=== PATIENT | male | born 1965 | race Caucasian/White ===

== ENCOUNTER → 2019-03-05 | Outpatient (CLI) | payer MEDICARE ==
--- NOTE | 2019-03-06 06:17 | RAD ---
EXAM DESCRIPTION: Knee,Left Complete CLINICAL HISTORY: 53 years Male, PAIN IN LEFT KNEE COMPARISON: None. Findings: Location: Left knee No acute fracture or dislocation. Obliteration of the medial compartment with lateral tibial translation. Tricompartmental osteophytes. Small joint effusion. IMPRESSION: Left knee osteoarthritis with preferential involvement of the medial compartment. Small joint effusion. Electronically signed by: Davey Rivera MD 03/06/2019 6:15 AM CDT
--- NOTE | 2019-03-06 06:22 | RAD ---
EXAM DESCRIPTION: Knee,Right Complete CLINICAL HISTORY: 53 years Male, PAIN IN RIGHT KNEE COMPARISON: None. Findings: Location: Right knee No acute fracture or dislocation. Obliteration of the medial compartment with corresponding osseous remodeling. Lateral tibial translation. Tricompartmental osteophytes. Small joint effusion. IMPRESSION: Right knee osteoarthritis with preferential involvement of the medial compartment. Small joint effusion. Electronically signed by: Davey Rivera MD 03/06/2019 6:21 AM CDT
--- NOTE | 2019-03-06 06:23 | RAD ---
EXAM DESCRIPTION: Pelvis CLINICAL HISTORY: 53 years Male, PAIN IN RIGHT HIP AND LEFT HIP COMPARISON: None. Findings: Degenerative disc changes noted in the lower lumbar spine. Bilateral sacroiliac joint space narrowing. Bilateral hip osteoarthritis, left greater than right. No acute fracture or dislocation. No focal soft tissue swelling. IMPRESSION: Degenerative changes about the pelvis. No evidence of acute process. Electronically signed by: Davey Rivera MD 03/06/2019 6:22 AM CDT
== END ==
LOC: RAD 09:06
PROVIDERS: ATTEND Orthopaedic Surgery
DX: M16.0 Bilateral primary osteoarthritis of hip (principal); M17.0 Bilateral primary osteoarthritis of knee; M25.461 Effusion, right knee; M25.462 Effusion, left knee

== ENCOUNTER → 2019-03-27 | Outpatient (CLI) | payer MEDICARE | LOC: LAB.O 11:57 | PROVIDERS: ATTEND Orthopaedic Surgery | DX: Z01.818 Encounter for other preprocedural examination (principal) ==

== ENCOUNTER → 2019-04-14 | Day surgery (SDC) | payer MEDICARE ==
--- NOTE | 2019-04-03 12:11 | RAD ---
EXAM DESCRIPTION: Chest,2 Views CLINICAL HISTORY: pre op COMPARISON: None TECHNIQUE: PA/lateral FINDINGS: Extrapleural thickening on the right may be due to old rib trauma. Heart size is normal with normal pulmonary vascularity. No pleural effusion or pneumothorax. Lungs are clear with no consolidating infiltrate. Lateral view shows intact sternum and T-spine. Density overlying the lower T-spine is thought to be a large osteophyte. IMPRESSION: No acute process is identified in the chest. Electronically signed by: Ramirez Rose MD 04/03/2019 12:10 PM CDT
--- NOTE | 2019-04-03 13:26 | HP ---
CHIEF COMPLAINT: Right knee pain. HISTORY OF PRESENT ILLNESS: Mookie is a 53-year-old male with a history of severe pain in the knee. He says it is aching, burning and on a constant basis. He says this has been going on for at least 7 years. She says that now it has gotten to the point that it causes disruption in his daily activities. The only alleviating factors that he has been able to note are getting off of the leg with some ice and aggravating factors include walking, standing, range of motion and lifting. He denies any recent trauma. Associated symptoms include buckling and clicking. He has never had any surgeries previously. He has had injections and preoperative physical therapy. Unfortunately, these have failed to give him relief. Because of his ongoing symptoms, he has requested operative intervention. After discussing the risks, benefits and alternatives to that, he has given informed consent. PAST SURGICAL HISTORY: 1. Knee arthroscopy. MEDICATIONS: 1. Xanax. 2. Januvia. 3. Lovastatin. 4. Lyrica. 5. Metformin. 6. Testosterone. 7. Lisinopril. 8. Levothyroxine. PAIN CONTRACT: None. ALLERGIES: NO KNOWN DRUG ALLERGIES. CODE STATUS: Full code. IMMUNIZATIONS: Up to date. SOCIAL HISTORY: He smokes about 4 cigarettes a day, but does not drink or use any illicit drugs. FAMILY HISTORY: None pertinent to today's complaint. REVIEW OF SYSTEMS: Negative except as indicated in the History of Present Illness. HEENT: The patient reports no symptoms. RESPIRATORY: The patient reports no symptoms. CARDIOVASCULAR: The patient reports no symptoms. GASTROINTESTINAL: The patient reports no symptoms GENITOURINARY: The patient reports no symptoms. MUSCULOSKELETAL: Negative except as noted in History of Present Illness. SKIN: The patient reports no symptoms. NEUROLOGIC: The patient reports no symptoms. PHYSICAL EXAMINATION: VITAL SIGNS: Blood pressure 175/115. Pulse 83. Height 5'8". Weight 307 pounds. GENERAL: He is an obese male in no acute distress. MENTAL STATUS: The patient is awake, alert, and is able to give a good history and participate in the physical. The patient is oriented to person, place and time. SKIN: Normal tone and turgor. HEENT: Normocephalic, atraumatic. Pupils equal, round and reactive. Mucosal membranes are moist. NECK: Normal range of motion. No thyromegaly, no lymphadenopathy. CHEST: Normal respiratory excursion. CARDIAC: Regular rate and rhythm. No murmurs, rubs or gallops. MUSCULOSKELETAL: The bilateral upper extremities show full active range of motion without pain. He has intact sensation in the extremities and they are warm and well perfused. He has no deformity and no crepitus. He has a negative belly press maneuver. Strength and reflexes are equal bilaterally. The left lower extremity shows full range of motion of the hip. He has full extension of the knee and flexion is to about 115 degrees. He has full range of motion in the ankle and digits. He has no pain with range of motion of the hip, ankle and digits. He does have pain and crepitus with range of motion of the knee. He has intact sensation. There is no malalignment or deformity. There is no swelling. He is very tender to palpation of the knee and with range of motion. The right lower extremity shows severe pain to palpation of the knee. He has pain with range of motion of the knee, but maintains full extension with flexion to about 110 degrees. He has a mild effusion. There is no varus or valgus deformity. Sensation is intact. Strength is 5/5. He has no pain with range of motion of the hip, ankle or digits. RADIOLOGY: My interpretation of the x-rays shows severe arthritis. ASSESSMENT: 1. Osteoarthritis. PLAN: The plan at this point is for total knee arthroplasty. We have discussed the risks, benefits, and alternatives to that and the patient has given informed consent. #[id number] [facility]
== END ==
LOC: AMB 05:22
PROVIDERS: ATTEND Orthopaedic Surgery
DX: M17.11 Unilateral primary osteoarthritis, right knee (principal); F17.210 Nicotine dependence, cigarettes, uncomplicated; Z79.84 Long term (current) use of oral hypoglycemic drugs; Z79.899 Other long term (current) drug therapy; Z53.9 Procedure and treatment not carried out, unspecified reason

== ENCOUNTER → 2019-08-05 | Outpatient (CLI) | payer MEDICARE | LOC: LAB.O 09:46 | PROVIDERS: ATTEND Orthopaedic Surgery | DX: Z01.818 Encounter for other preprocedural examination (principal) ==